=== PATIENT | male | born 1950 | race Caucasian/White ===

== ENCOUNTER 2016-10-12 14:09 | Inpatient (IN) | payer MEDICARE, OTHER ==
[2016-10-11] MEDS: VITAMINS A AND D 56.7 GM TUBE TP SCH (19:30)
[~2016-10-12] VITALS: Ht 170.2 cm; Wt 78.9 kg
--- NOTE | 2016-10-12 14:12 | NUR ---
BBRA FROM HOME FOR UNABLE TO TAKE CARE OF SELF PER DAUGHTER STATE PT RAN AWAY THIS AM. AWAITING MD ORDER
--- NOTE | 2016-10-12 14:31 | NUR ---
DR TREVIZO AT BEDSIDE FOR EVAL
[2016-10-12 14:36] LABS: BASOPHILS % (AUTO) 0.5 % (0.0-2.0); EOSINOPHILS % (AUTO) 0.6 % (0.0-6.0); HEMATOCRIT 41 % (39-51); HEMOGLOBIN 13.3 g/dL (13.5-17.5); LYMPHOCYTES # (AUTO) 1.4 /CMM (0.8-4.8); LYMPHOCYTES % (AUTO) 18.1 % (20.0-44.0); MEAN CORPUSCULAR HEMOGLOBIN 26 PG (26.0-33.0); MEAN CORPUSCULAR HGB CONC 32 g/dl (31.0-36.0); MEAN CORPUSCULAR VOLUME 81 fL (80-96); MONOCYTES # (AUTO) 0.4 /CMM (0.1-1.30); MONOCYTES % (AUTO) 5.6 % (2.0-12.0); NEUTROPHILS # (AUTO) 6.1 /CMM (1.8-8.9); NEUTROPHILS % (AUTO) 75.2 % (43.0-81.0); PLATELET COUNT (AUTO) 214 /CMM (150-450); RDW COEFFICIENT OF VARIATION 13.3 (11.5-15.0); WHITE BLOOD COUNT (AUTO) 7.9 K/uL (4.3-11.0)
--- NOTE | 2016-10-12 14:38 | NUR ---
CALLED FOR LUNCH TRAY
[2016-10-12 14:46] LABS: CALCIUM, SERUM 8.7 mg/dL (8.5-10.1); CARBON DIOXIDE 29 mmol/L (21-32); CHLORIDE 105 mmol/L (98-107); CREATININE 0.9 mg/dL (0.6-1.3); GLUCOSE 68 mg/dL (74-106); POTASSIUM 4.4 mmol/L (3.5-5.1); SODIUM SERUM 140 mmol/L (136-145); UREA NITROGEN, BLOOD 19 mg/dL (7-18)
[2016-10-12 14:52] LABS: ALANINE AMINOTRANSFERASE 15 U/L (12-78); ALBUMIN 3.7 g/dL (3.4-5.0); ALCOHOL, BLOOD < 3 mg/dL (0-0); ALKALINE PHOSPHATASE 73 U/L (46-116); ASPARTATE AMINOTRANSFERASE 38 U/L (15-37); BILIRUBIN,DIRECT 0.2 mg/dL (0.0-0.2); BILIRUBIN,TOTAL 0.9 mg/dL (0.2-1.0); SALICYLATE 5.6 mg/dL (2.8-20.0)
[2016-10-12 14:53] LABS: ACETAMINOPHEN 0 ug/ml (10-30)
--- NOTE | 2016-10-12 16:48 | NUR ---
CALLED NURSING SUP. FOR GPS BED
--- NOTE | 2016-10-12 18:09 | NUR ---
CALLED [facility] THEY DONT HAVE A MALE BED RIGHT NOW
--- NOTE | 2016-10-12 18:24 | NUR ---
GAVE REPORT TO ANJALI MON AND DR PEREZ.
[2016-10-12] MEDS ORDERED: BENZ28OI2 TP (18:49)
[2016-10-12] MEDS ORDERED: CITA10TA9 PO (18:49)
[2016-10-12] MEDS ORDERED: VITS42.53 TP (18:49)
[2016-10-12] MEDS ORDERED: ROPI4TAB4 PO ×2 (18:49)
[2016-10-12] MEDS ORDERED: DOCU250C75 PO (18:49)
[2016-10-12] MEDS ORDERED: DICL100G3 TP (18:49)
[2016-10-12] MEDS ORDERED: ENTA200T PO (18:49)
[2016-10-12] MEDS ORDERED: CLOT15CR63 TP (18:49)
[2016-10-12] MEDS ORDERED: OMEG1CAP PO (18:49)
[2016-10-12] MEDS ORDERED: CHOL200026 PO (18:49)
[2016-10-12] MEDS ORDERED: RASA1TAB4 PO (18:49)
[2016-10-12] MEDS ORDERED: POLY17PO3 PO (18:49)
[2016-10-12] MEDS ORDERED: GABA-534 PO (18:49)
[2016-10-12] MEDS ORDERED: CARB-93 PO (18:49)
[2016-10-12] MEDS ORDERED: AMAN100T PO (18:49)
[2016-10-12] MEDS: CLOTRIMAZOLE 1% 15 GM TUBE TP SCH (19:30)
[2016-10-12] MEDS: AMANTADINE HCL 100 MG CAPSULE PO SCH (19:30)
[2016-10-12] MEDS ORDERED: Medication Not On Formulary EA (Omega-3 Fatty Acids/Fish Oil (Fish Oil 1,000 Mg Capsule) PO SCH (19:30)
[2016-10-12] MEDS ORDERED: Medication Not On Formulary EA (Rasagiline Mesylate 1 MG) PO SCH (19:30)
[2016-10-12 20:00] VITALS: BP 130/82
[2016-10-12] MEDS: GABAPENTIN 300 MG CAPSULE PO SCH (20:16)
[2016-10-12] MEDS: CHOLECALCIFEROL 1,000 UNIT TABLET (VIT D3) PO SCH (20:21)
[2016-10-12] MEDS: CARBIDOPA/LEVODOPA 25/100 MG 1 UDTAB PO SCH (20:21)
[2016-10-12] MEDS: DOCUSATE SODIUM 250 MG CAPSULE PO SCH (20:22)
[2016-10-12] MEDS ORDERED: TEMAZEPAM 7.5 MG CAPSULE PO PRN (20:30)
[2016-10-12] MEDS ORDERED: MAGNESIUM HYDROXIDE 30 ML UDC PO PRN (20:30)
[2016-10-12] MEDS ORDERED: MAG HYDROX/AL HYDROX/SIMETH 30 ML UDC PO PRN (20:30)
--- NOTE | 2016-10-12 20:35 | NUR ---
RN GPS NOTES AT 1930 LOTRIMIN 1% AND VITAMIN A&D, CALLED PHARMACY FOR MEDS AT THIS TIME NOT DELIVERED BY PHARMACY, NON ADMINISTERED
--- NOTE | 2016-10-12 20:50 | NUR ---
GPS RN ADMITTED NOTES ADMITTED THIS 66Y/O MALE FROM [facility] ER ,PT INITIALLY CAME FROM HOME , PT. CAME TO THE UNIT VIA WHEELCHAIR ACCOMPANIED ER STAFF PT. IS ON 5150 HOLD GRAVELY DISABLE, PER HOLD PT. ANXIOUS PACING ADMITS TO HAVING BREAKDOWN THIS MORNING PER DAUGHTER PT. RAN AWAY FROM HOME AFTER BREAKDOWN PT. RAMBLING FROM TOPIC TO TOPIC AND UNABLE TO SELF CARE , ,UPON FACE TO FACE ASSESSMENT PT. A/O X1 ANXIOUS DEPRESSIVE POOR JUDGEMENT , HX PARKINSION ,LYMPHOMA , HTN , PER ER REPORTS FALLING 5 TIMES THIS MORNING NO ACUTE DISTRESS NOTED , DENIES ANY PAIN DISCOMFORT AT THIS TIME ,PT. REFUSED SKIN BODY ASSESSMENT AT THIS TIME ,WILL TRYING AGAIN , MRSA SCREENING DONE IN ER ,BOTH MD AWARE OF NEW ADMISSION NEW ORDERS RECEIVED AND CARRIED OUT, REORIENT TO UNIT POLICES AND CONTRABAND CHECKS , WILL CONTINUE TO MONITOR FOR SAFETY AND BEHAVIOR .
[2016-10-12] MEDS: ENTACAPONE 200 MG TABLET PO SCH (21:35)
[2016-10-12 23:13] VITALS: BP 128/73
[2016-10-13] MEDS: CARBIDOPA/LEVODOPA 25/100 MG 1 UDTAB PO SCH ×6 (01:20→21:50)
[2016-10-13] MEDS: ENTACAPONE 200 MG TABLET PO SCH ×6 (01:20→21:50)
--- NOTE | 2016-10-13 04:53 | NUR ---
RN GPS NOTES PT. REFUSED SKIN BODY ASSESSMENT , ENCOURAGED FOR SKIN BODY ASSESSMENT STILL REFUSED, PT STATED I AM FINE .
--- NOTE | 2016-10-13 06:07 | NUR ---
RN GPS NOTE PT IN BED, RESTING COMFORTABLY. NO ACUTE DISTRESS NOTED ATTENDED ALL NEEDS AND ANTICIPATED , DENIES SI/ HI AT THIS TIME, UNABLE TO DO SKIN ASSESSMENT AND UNABLE TO TAKEN PICTURE, PT REFUSED, WILL ENDORSE TO NEXT SHIFT NURSE. SAFETY PRECAUTIONS OBSERVED. WILL CONT TO MONITOR.
[2016-10-13 08:00] VITALS: BP 96/47
[2016-10-13] MEDS: GABAPENTIN 300 MG CAPSULE PO SCH ×3 (08:52→18:10)
[2016-10-13] MEDS: DOCUSATE SODIUM 250 MG CAPSULE PO SCH (08:52)
[2016-10-13] MEDS: CHOLECALCIFEROL 1,000 UNIT TABLET (VIT D3) PO SCH ×2 (08:52→18:10)
[2016-10-13] MEDS: AMANTADINE HCL 100 MG CAPSULE PO SCH ×2 (08:52→18:11)
[2016-10-13] MEDS: CLOTRIMAZOLE 1% 15 GM TUBE TP SCH ×2 (08:55→18:13)
[2016-10-13] MEDS: VITAMINS A AND D 56.7 GM TUBE TP SCH ×3 (08:55→18:13)
[2016-10-13] MEDS: POLYETHYLENE GLYCOL 3350 17 GM POWD.PACK PO SCH (09:00)
[2016-10-13 16:00] VITALS: BP 128/77
--- NOTE | 2016-10-13 18:00 | NUR ---
PATIENT IN TH ROOM, VERY NEEDY, MED COMPLIANT, V/S STABLE, SON NEXT TO THE BED, REQUESTED HIS FATHERS MEDICATION, NEEDS ATTENDED, CONTINUED MONITORING.
[2016-10-13] MEDS: DIVALPROEX SODIUM 125 MG CAP.SPRINK PO SCH (18:31)
[2016-10-13 20:00] VITALS: BP 113/72
[2016-10-13] MEDS: LORAZEPAM 0.5 MG TABLET PO PRN (20:16)
[2016-10-14] MEDS: ENTACAPONE 200 MG TABLET PO SCH ×6 (01:20→20:52)
[2016-10-14] MEDS: CARBIDOPA/LEVODOPA 25/100 MG 1 UDTAB PO SCH ×6 (01:20→20:52)
[2016-10-14 07:27] LABS: ALBUMIN 3.3 g/dL (3.4-5.0); BILIRUBIN,TOTAL 0.5 mg/dL (0.2-1.0); CALCIUM, SERUM 8.5 mg/dL (8.5-10.1); CREATININE 0.8 mg/dL (0.6-1.3); POTASSIUM 3.9 mmol/L (3.5-5.1); TOTAL PROTEIN, SERUM 6.9 g/dL (6.4-8.2)
[2016-10-14 08:00] VITALS: BP 128/68
--- NOTE | 2016-10-14 08:01 | NUR ---
RN-CO: PATIENT VERBALLY ABUSED STAFF " YOU STUPID, YOU DONT KNOW WHAT KOSHER.!"
[2016-10-14] MEDS: POLYETHYLENE GLYCOL 3350 17 GM POWD.PACK PO SCH (08:06)
[2016-10-14] MEDS: GABAPENTIN 300 MG CAPSULE PO SCH ×3 (08:08→17:20)
[2016-10-14] MEDS: CHOLECALCIFEROL 1,000 UNIT TABLET (VIT D3) PO SCH ×2 (08:09→17:20)
[2016-10-14] MEDS: DIVALPROEX SODIUM 125 MG CAP.SPRINK PO SCH ×3 (08:09→17:20)
[2016-10-14] MEDS: DOCUSATE SODIUM 250 MG CAPSULE PO SCH (08:09)
[2016-10-14] MEDS: AMANTADINE HCL 100 MG CAPSULE PO SCH ×2 (08:09→17:20)
[2016-10-14] MEDS: VITAMINS A AND D 56.7 GM TUBE TP SCH ×3 (08:11→17:22)
[2016-10-14] MEDS: CLOTRIMAZOLE 1% 15 GM TUBE TP SCH ×2 (08:11→17:22)
--- NOTE | 2016-10-14 14:43 | NUR ---
initial Discharge Plan: Per patient, he lives alone [id number] [facility] [place] [address] ([phone]). Patient would like to return home upon discharge. terrazzo worker helper spoke to patient's son Enio Vicente who confirmed that patient lives home alone but has a caregiver in the day. Patient's son would also like patient to return home upon discharge. Sw will help form a safe and proper discharge.
[2016-10-14 16:00] VITALS: BP 137/67
--- NOTE | 2016-10-14 17:12 | NUR ---
Discharge Note: Patient will be discharged home [id number] [facility] [place] [address] ([phone]).Patient's son Enio Vicente will pick him up. Patient and patient's son are agreeable with the discharge plan. Per patient's son patient has a caregiver during the day. Patient's mood and affect are appropriate. Patient denies suicidal and homicidal ideations. Patient and patient's son agreed to follow-up with patient's psychiatrist at the [facility] [id number] [place] [address]. [facility] [address] ([phone]). Facilitated info to IDT team who are in agreement with discharge arrangement. The multidisciplinary exitcare form was done, printed, signed, and given to the patient.
[2016-10-14] MEDS: VOLTAREN TP SCH (17:19)
[2016-10-14 20:00] VITALS: BP 113/73
[2016-10-14] MEDS: LORAZEPAM 0.5 MG TABLET PO PRN (20:52)
[2016-10-15] MEDS: ENTACAPONE 200 MG TABLET PO SCH ×5 (01:24→17:27)
[2016-10-15] MEDS: CARBIDOPA/LEVODOPA 25/100 MG 1 UDTAB PO SCH ×5 (01:24→17:27)
--- NOTE | 2016-10-15 07:30 | NUR ---
RN GPS OPENING NOTE PT IN WHEELCHAIR, SITTING COMFORTABLY, A&OX4. NO SOB, BREATHING ON ROOM AIR. NO ACUTE DISTRESS NOTED ATTENDED ALL NEEDS AND ANTICIPATED , DENIES SI/ HI AT THIS TIME. SAFETY PRECAUTIONS OBSERVED. WILL CONT TO MONITOR. CALL LIGHT IS WITHIN REACH.
[2016-10-15 08:00] VITALS: BP 129/78
[2016-10-15 08:11] LABS: CHOLESTEROL 136 mg/dL (<200); HDL CHOLESTEROL 46 mg/dL (40-60); LDL 79 mg/dL (0-99); TRIGLYCERIDES 69 mg/dL (30-150)
--- NOTE | 2016-10-15 08:51 | NUR ---
PT. WITH AN ORDER D/C HOLD AND D/C HOME. PT. WITHOUT DISTRESS, DENIES SUICIDAL AND HOMICIDAL AND TO FOLLOW UP WITH PSYCH AND MEDICAL DOCTORS.
[2016-10-15] MEDS: CLOTRIMAZOLE 1% 15 GM TUBE TP SCH ×2 (09:00→17:33)
[2016-10-15] MEDS: VITAMINS A AND D 56.7 GM TUBE TP SCH ×3 (09:00→17:33)
[2016-10-15 09:03] VITALS: BP 129/78
--- NOTE | 2016-10-15 10:25 | NUR ---
DR. PEREZ NOTIFIED ABOUT THE DISCHARGE AND SAID OK FOR DISCHARGE AND HE RECONCILED THE MEDS.
[2016-10-15] MEDS: GABAPENTIN 300 MG CAPSULE PO SCH ×3 (10:28→17:27)
[2016-10-15] MEDS: DIVALPROEX SODIUM 125 MG CAP.SPRINK PO SCH ×3 (10:28→17:27)
[2016-10-15] MEDS: DOCUSATE SODIUM 250 MG CAPSULE PO SCH (10:28)
[2016-10-15] MEDS: AMANTADINE HCL 100 MG CAPSULE PO SCH ×2 (10:28→17:27)
[2016-10-15] MEDS: POLYETHYLENE GLYCOL 3350 17 GM POWD.PACK PO SCH (10:28)
[2016-10-15] MEDS: CHOLECALCIFEROL 1,000 UNIT TABLET (VIT D3) PO SCH ×2 (10:29→17:27)
[2016-10-15] MEDS: VOLTAREN TP SCH ×2 (10:30→17:27)
[2016-10-15] MEDS: LORAZEPAM 0.5 MG TABLET PO PRN (10:39)
[2016-10-15 16:00] VITALS: BP 117/86
--- NOTE | 2016-10-15 17:34 | NUR ---
GPS HAT LINER NOTES PT. WAS EXPLAINED DISCHARGE INSTRUCTIONS, AND VERBALIZED UNDERSTANDING. BELONGINGS WERE CHECKED, AND LIST WAS SIGNED. PT. WAS GIVEN MEDICATION LIST, AND INSTRUCTED TO FOLLOW PRESCRIPTIONS PRESCRIBED. PT. LEFT IN MEDICALLY STABLE CONDITION THE GPS UNIT USING A FOUR WHEEL WALKER, AND WITH HIS SON, DEMARCUS, ESCORTED BY A DIRECTOR NICU. ID BAND WAS REMOVED.
== END 2016-10-15 17:35 | disposition home or self-care (01) | DRG 885 ==
LOC: ER 14:14 → GPS 18:16 → EDBD 18:16 → GPS 10-13 18:04
PROVIDERS: ADMIT Psychiatry & Neurology Psychosomatic Medicine; ATTEND Internal Medicine
DX: F39 Unspecified mood [affective] disorder (principal); F02.80 Dementia in other diseases classified elsewhere, unspecified severity, without behavioral disturbance, psychotic disturbance, mood disturbance, and anxiety; F29 Unspecified psychosis not due to a substance or known physiological condition; G20 Parkinson's disease; G89.29 Other chronic pain; I10 Essential (primary) hypertension; Z86.73 Personal history of transient ischemic attack (TIA), and cerebral infarction without residual deficits; G30.9 Alzheimer's disease, unspecified; G62.9 Polyneuropathy, unspecified; Z79.899 Other long term (current) drug therapy; F31.9 Bipolar disorder, unspecified
CPT/HCPCS: 36415; 80048-TC; 80053-TC; 80061-TC; 80076-TC; 85025-TC; 87081-TC; 97001-TC; A4606; G0480; Z7610

== ENCOUNTER 2017-02-18 01:11 | Emergency (ER) | payer MEDICARE, OTHER ==
[~2017-02-18] VITALS: Ht 167.6 cm; Wt 75.3 kg
[~2017-02-18 01:11] MED LIST: AMAN100T PO; BENZ28OI2 TP; CARB-93 PO; CHOL200026 PO; CITA10TA9 PO; CLOT15CR63 TP; DICL100G3 TP; DOCU250C75 PO; ENTA200T PO; GABA-534 PO; OMEG1CAP PO; POLY17PO3 PO; RASA1TAB4 PO; ROPI4TAB4 PO; VITS42.53 TP
[2017-02-18 02:36] LABS: APPEARANCE,URINE OTHER (CLEAR); BILIRUBIN,URINE NEGATIVE (NEGATIVE); BLOOD, URINE 3+ Ery/uL (NEGATIVE); COLOR,URINE ORANGE (YELLOW); KETONES,URINE TRACE (NEGATIVE); LEUKOCYTE ESTERASE ,URINE TRACE (NEGATIVE); NITRITE, URINE NEGATIVE (NEGATIVE); PROTEIN,URINE NEGATIVE (NEGATIVE); UGLUCOSE NEGATIVE (NEGATIVE); UROBILINOGEN,URINE 0.2 EU/dL (0.2)
[2017-02-18 02:41] LABS: BACTERIA,URINE None seen /HPF (None Seen); RBC,URINE 21-50 /HPF (0-2); SQUAMOUS EPITHELIAL CELL,UR Few /HPF (None Seen)
[2017-02-18] MEDS ORDERED: IV NS 0.9% 1,000 ML BAG IV ONE (03:00)
[2017-02-18 03:06] LABS: BASOPHILS % (AUTO) 0.5 % (0.0-2.0); EOSINOPHILS # (AUTO) 0.2 /CMM (0.0-0.7); EOSINOPHILS % (AUTO) 3.4 % (0.0-6.0); HEMATOCRIT 43 % (39-51); HEMOGLOBIN 13.8 g/dL (13.5-17.5); LYMPHOCYTES # (AUTO) 1.7 /CMM (0.8-4.8); LYMPHOCYTES % (AUTO) 33.8 % (20.0-44.0); MEAN CORPUSCULAR HEMOGLOBIN 26 PG (26.0-33.0); MEAN CORPUSCULAR HGB CONC 33 g/dl (31.0-36.0); MEAN CORPUSCULAR VOLUME 79 fL (80-96); MONOCYTES # (AUTO) 0.5 /CMM (0.1-1.30); MONOCYTES % (AUTO) 10.5 % (2.0-12.0); NEUTROPHILS # (AUTO) 2.6 /CMM (1.8-8.9); NEUTROPHILS % (AUTO) 51.8 % (43.0-81.0); PLATELET COUNT (AUTO) 199 /CMM (150-450); RDW COEFFICIENT OF VARIATION 15.2 (11.5-15.0)
--- NOTE | 2017-02-18 03:14 | NUR ---
PT TRANSPORTED TO RADIOLOGY FOR CT ABD/PELVIS.
[2017-02-18 03:19] LABS: INR 0.95 (0.87-1.13); PROTHROMBIN TIME 9.9 SECS (9.5-12.7)
[2017-02-18 03:21] LABS: ALBUMIN 3.3 g/dL (3.4-5.0); BILIRUBIN,DIRECT 0.1 mg/dL (0.0-0.2); BILIRUBIN,TOTAL 0.3 mg/dL (0.2-1.0); CREATININE 0.7 mg/dL (0.6-1.3); POTASSIUM 4.6 mmol/L (3.5-5.1)
--- NOTE | 2017-02-18 03:30 | NUR ---
PT BACK FROM RADIOLOGY. PENDING CT RESULT.
[2017-02-18] MEDS ORDERED: AMAN100C16 (03:37)
[2017-02-18] MEDS ORDERED: ENTA200T (03:37)
[2017-02-18] MEDS ORDERED: CITA10TA9 (03:37)
[2017-02-18] MEDS ORDERED: CARB1TAB21 (03:37)
[2017-02-18] MEDS ORDERED: ATOR10TA (03:37)
[2017-02-18] MEDS ORDERED: OMEG1CAP (03:37)
[2017-02-18] MEDS ORDERED: CHOL10002 (03:37)
[2017-02-18] MEDS ORDERED: CARBIDOPA/LEVODOPA 25/100 MG 1 UDTAB PO SCH (04:00)
--- NOTE | 2017-02-18 04:25 | NUR ---
IV removed. Catheter intact and site benign. Pressure and 4x4 applied to site. No bleeding noted. Patient discharged to home in stable condition. Written and verbal after care instructions given. Patient verbalizes understanding of instruction. ambulatory with a steady gait noted. pt son at bedside to take pt home.
[2017-02-18 04:27] VITALS: BP 124/68
== END 2017-02-18 04:31 | disposition home or self-care (01) ==
LOC: ER 01:14
DX: N20.0 Calculus of kidney (principal); E11.9 Type 2 diabetes mellitus without complications; Z88.6 Allergy status to analgesic agent; G89.29 Other chronic pain; Z79.899 Other long term (current) drug therapy
CPT/HCPCS: 36415; 74176; 80048; 80076; 81001; 83690; 85025; 85730; 96360; 99285; A4606; 81000-TC; Z7610

== ENCOUNTER 2023-07-10 23:16 | Emergency (ER) | payer MEDICARE ==
[~2023-07-10] VITALS: Ht 167.6 cm; Wt 72.6 kg
[~2023-07-10 23:16] MED LIST changes: +AMAN100C16; +ATOR10TA; +CARB-300 PO; -CARB-93 PO; +CARB1TAB21; +CHOL10002; +CITA10TA9; +CLOT15CR27 TP; -CLOT15CR63 TP; +DICL100G16 TP; -DICL100G3 TP; +DOCU250C14 PO; -DOCU250C75 PO; +ENTA200T30; +OMEG1CAP; +POLY17PO29 PO; -POLY17PO3 PO; -ROPI4TAB4 PO; +ROPI4TAB6 PO
[2023-07-11] MEDS ORDERED: LEVETIRACETAM (500MG) 500 MG/5 ML VIAL IV ONE (00:06)
[2023-07-11 00:08] LABS: BASOPHILS % (AUTO) 0.3 % (0.0-2.0); EOSINOPHILS # (AUTO) 0.1 K/uL (0.0-0.7); EOSINOPHILS % (AUTO) 1.9 % (0.0-6.0); HEMATOCRIT 37 % (39-51); HEMOGLOBIN 11.9 g/dL (13.5-17.5); LYMPHOCYTES # (AUTO) 1.1 K/uL (0.8-4.8); LYMPHOCYTES % (AUTO) 35.7 % (20.0-44.0); MEAN CORPUSCULAR HEMOGLOBIN 25 PG (26.0-33.0); MEAN CORPUSCULAR HGB CONC 32 g/dl (31.0-36.0); MEAN CORPUSCULAR VOLUME 79 fL (80-96); MONOCYTES # (AUTO) 0.4 K/uL (0.1-1.30); MONOCYTES % (AUTO) 11.2 % (2.0-12.0); NEUTROPHILS # (AUTO) 1.6 K/uL (1.8-8.9); NEUTROPHILS % (AUTO) 50.9 % (43.0-81.0); PLATELET COUNT (AUTO) 167 K/uL (150-450); RED BLOOD CELL COUNT(AUTO) 4.67 MIL/uL (4.5-6.0); WHITE BLOOD COUNT (AUTO) 3.2 K/uL (4.3-11.0)
[2023-07-11] MEDS: LEVETIRACETAM (500MG) 1,000 MG in IV NS 0.9% 90 ML IV SCH (00:13)
[2023-07-11 00:33] LABS: CALCIUM, SERUM 8.8 mg/dL (8.5-10.1); CARBON DIOXIDE 30 mmol/L (21-32); CHLORIDE 101 mmol/L (98-107); CREATININE 1.1 mg/dL (0.6-1.3); GLUCOSE 106 mg/dL (74-106); POTASSIUM 3.8 mmol/L (3.5-5.1); SODIUM SERUM 140 mmol/L (136-145); UREA NITROGEN, BLOOD 11 mg/dL (7-18)
[2023-07-11 01:01] LABS: ALKALINE PHOSPHATASE 77 U/L (46-116); ASPARTATE AMINOTRANSFERASE 11 U/L (15-37); BILIRUBIN,TOTAL 0.5 mg/dL (0.2-1.0)
[2023-07-11 01:02] LABS: ALANINE AMINOTRANSFERASE < 6 U/L (12-78); ALBUMIN 3.1 g/dL (3.4-5.0); NT-PRO BNP 409 pg/mL (0-125); TOTAL PROTEIN, SERUM 6.9 g/dL (6.4-8.2)
[2023-07-11] MEDS ORDERED: MORPHINE SULFATE INJ 2 MG/ML DISP.SYRIN IV PRN (03:00)
[2023-07-11] MEDS ORDERED: hydrALAZINE HCL IV 20 MG VIAL IV PRN (03:00)
[2023-07-11] MEDS ORDERED: ONDANSETRON HCL/PF 4 MG/2 ML VIAL IVP PRN (03:00)
[2023-07-11] MEDS ORDERED: LORAZEPAM INJ 2 MG/ML VIAL IV PRN (03:00)
[2023-07-11 03:25] LABS: BILIRUBIN,DIRECT 0.1 mg/dL (0.0-0.2)
[2023-07-11 03:30] LABS: LACTIC ACID REFLEX 1.3 mmol/L (0.4-1.9)
[2023-07-11] MEDS: IV NS 0.9% 1,000 ML IV SCH (03:32)
[2023-07-11 04:36] VITALS: BP 137/78; TEMP 98.5; O2SAT 96
[2023-07-11] MEDS ORDERED: HEPARIN SODIUM, PORCINE 5000 UNITS/1 ML VIAL SQ SCH (09:00)
[2023-07-11] MEDS ORDERED: LEVETIRACETAM (500MG) 500 MG in IV NS 0.9% 100 ML IV SCH (09:00)
== END 2023-07-11 04:37 | disposition home or self-care (01) ==
LOC: ER 23:18
DX: R56.9 Unspecified convulsions (principal); E11.9 Type 2 diabetes mellitus without complications; Z79.899 Other long term (current) drug therapy; Z88.1 Allergy status to other antibiotic agents
CPT/HCPCS: 99285; 70450; 71045; 85025; 83605 ×2; 36415 ×2; 80053; 84484; 83880; 96365; 96361; 82248; J7030; J1953